=== PATIENT | male | born 1975 | race Caucasian/White ===

== ENCOUNTER → 2018-01-15 | Outpatient (CLI) | payer OTHER | LOC: M LRY 16:09 | DX: M51.37 Other intervertebral disc degeneration, lumbosacral region (principal) | CPT/HCPCS: 72110 ==

== ENCOUNTER → 2018-02-08 | Outpatient (CLI) | payer OTHER | LOC: M RAD 12:58 | DX: M51.26 Other intervertebral disc displacement, lumbar region (principal); N28.1 Cyst of kidney, acquired | CPT/HCPCS: 72149 ==

== ENCOUNTER 2024-08-01 08:32 | Emergency (ER) | payer OTHER, SELFPAY ==
[~2024-08-01] VITALS: Ht 170.2 cm; Wt 95.5 kg
[~2024-08-01 08:32] MED LIST: ACYC200S4 PO; ALPR0.25 PO; ALPR0.5T3 PO; ATEN100T PO; LISI20TA33 PO; PARO20TA3 PO; PROTPAK PO
[2024-08-01] MEDS ORDERED: AMOX875T2 (08:44)
[2024-08-01] MEDS ORDERED: VALS1TAB67 (08:44)
[2024-08-01] MEDS ORDERED: ACID1TAB (08:44)
[2024-08-01] MEDS: ONDANSETRON 4MG ORAL DISINTEGRATING TAB PO ONE (10:37)
[2024-08-01] MEDS: KETOROLAC 30 MG/ML 1ML VIAL IM ONE (10:37)
[2024-08-01 10:40] LABS: RSV AMPLIFICATION NEGATIVE (NEGATIVE)
[2024-08-01] MEDS: ACETAMINOPHEN 325 MG TAB PO ONE (10:54)
[2024-08-01 12:04] LABS: BASO # 0.1 10^3/uL (0.0-0.2); BASO % 1.1 % (0.0-1.0); EOS % 0.5 % (0.0-3.0); HEMATOCRIT 44.7 % (42.0-52.0); HEMOGLOBIN 14.9 g/dl (13.5-17.5); LYMPH # 0.4 10^3/uL (1.5-5.0); LYMPH % 6.5 % (24.0-44.0); MEAN CORPUSCULAR HEMOGLOBIN 27.9 pg (27.0-33.0); MEAN CORPUSCULAR HGB CONC 33.3 g/dl (32.0-36.5); MEAN CORPUSCULAR VOLUME 83.6 fl (80.0-96.0); MONO # 0.8 10^3/uL (0.0-0.8); MONO % 15.1 % (2.0-8.0); NEUTROPHILS # 4.2 10^3/uL (1.5-8.5); NEUTROPHILS % 76.3 % (36.0-66.0); PLATELET COUNT, AUTOMATED 193 10^3/uL (150-450); RED BLOOD COUNT 5.35 10^6/uL (4.30-6.10); WHITE BLOOD COUNT 5.6 10^3/uL (4.0-10.0)
[2024-08-01 12:13] LABS: ERYTHROCYTE SEDIMENTATION RATE 19 mm/hr (0-20)
[2024-08-01 12:34] LABS: BLOOD UREA NITROGEN 14 MG/DL (9-23); CALCIUM LEVEL 8.3 MG/DL (8.5-10.1); CARBON DIOXIDE LEVEL 26 MMOL/L (20-31); CHLORIDE LEVEL 100 MMOL/L (98-107); GLOMERULAR FILTRATION RATE > 60.0 (>56); GLUCOSE, FASTING 124 MG/DL (60-100); POTASSIUM SERUM 4.3 MMOL/L (3.5-5.1); SODIUM LEVEL 134 MMOL/L (136-145)
[2024-08-01] MEDS: MORPHINE 4 MG/ML 1ML VIAL IV ONE (12:50)
[2024-08-01] MEDS ORDERED: VENTAER INH (16:12)
[2024-08-01] MEDS ORDERED: BENZ200C70 PO (16:12)
[2024-08-01] MEDS ORDERED: IBUP-1022 PO (16:12)
[2024-08-01] MEDS ORDERED: ONDA-282 PO (16:12)
[2024-08-01] MEDS ORDERED: OSEL75CA PO (16:12)
[2024-08-01 16:37] VITALS: BP 142/57; TEMP 98.9; O2SAT 98
== END 2024-08-01 16:44 | disposition home or self-care (01) ==
LOC: M ED 08:32 → EDBD 08:32 → M ED 16:44
DX: J09.X2 Influenza due to identified novel influenza A virus with other respiratory manifestations (principal); D18.02 Hemangioma of intracranial structures; K21.9 Gastro-esophageal reflux disease without esophagitis; I10 Essential (primary) hypertension; F17.210 Nicotine dependence, cigarettes, uncomplicated; Z88.8 Allergy status to other drugs, medicaments and biological substances; Z79.2 Long term (current) use of antibiotics; Z79.51 Long term (current) use of inhaled steroids; Z79.1 Long term (current) use of non-steroidal anti-inflammatories (NSAID); Z79.899 Other long term (current) drug therapy
CPT/HCPCS: 36415; 70450; 70551; 71046; 80048; 85025; 85652; 87631; 93041; 96372; 96374; 99285; J1885